=== PATIENT | male | born 1945 | race Caucasian/White ===

== ENCOUNTER 2017-02-13 07:09 | Emergency (ER) | payer OTHER, MEDICARE ==
[2017-02-13 07:27] VITALS: BP 121/90; PULSE 78; RESP 16; TEMP 98.4; O2SAT 94
--- NOTE | 2017-02-13 07:34 | EDPHY ---
H & P Time Seen by Provider: 02/13/17 07:33 HPI/ROS: 71-year-old male presents complaining of cough, sore throat, runny nose for several days. Patient states this often happens to him and it is easily knocked out with Z- Kash. Review of systems As per HPI General no fever no chills no weakness HEENT no eye pain no eye discharge. No eye redness, positive sore throat Respiratory positive cough, no shortness of breath Cardiac no chest pain, no peripheral edema GI no abdominal pain, no diarrhea, no constipation, no nausea, no vomiting no flank pain, no hematuria, no dysuria Musculoskeletal no myalgias, no joint pain Heme no easy bruising, no easy bleeding Endo no polyuria, no polydipsia Skin no rashes, no pruritus Neuro no syncope, no dizziness, no headaches Psych is no suicidal ideation, no homicidal ideation Past Medical/Surgical History: non contributory Social History: denies alcohol or drug use Smoking Status: Never smoked Physical Exam: 71 yo M in nad, non toxic appearance, afebrile vss at,nc eomi, anciteric nares yellow dc op mild erythema, no exudate, no petechiae neck supple, left shoddy anterior ln,small nt lungs cta bilat heart rrr abd nabs soft ext no cce Constitutional: Initial Vital Signs Temperature (C) 36.9 C 02/13/17 07:25 Heart Rate 78 02/13/17 07:25 Respiratory Rate 16 02/13/17 07:25 Blood Pressure 121/90 H 02/13/17 07:25 O2 Sat (%) 94 02/13/17 07:25 O2 Delivery Mode Room Air Allergies/Adverse Reactions: No Known Allergies Allergy (Verified 02/13/17 07:24) Home Medications: Medication Instructions Recorded Aspirin 81mg (OTC) 06/27/15 Fish Oil 06/27/15 AZITHROMYCIN [Z-PACK] 250 mg PO DAILY #6 tab 02/13/17 Prosteon 02/13/17 Vit D3/Folic Acid/B2/B6/B12 1 each PO 02/13/17 [Folgard Tablet] Medical Decision Making ED Course/Re-evaluation: pt seen and evaluated for cough, sore throat imp bronchitis pharyngitis plan ryan pcp Differential Diagnosis: uri, pneumonia, bronchitis, pharyngitis Departure - Departure Disposition: Home, Routine, Self-Care Clinical Impression: Bronchitis Condition: Good Instructions: Pharyngitis (ED), Acute Bronchitis (ED) Referrals: Vincent Kumar MD [Primary Care Provider] - As per Instructions Prescriptions: AZITHROMYCIN [Z-PACK] 250 mg PO DAILY #6 tab
== END 2017-02-13 07:45 | disposition home or self-care (01) ==
LOC: CED 07:09
DX: J20.9 Acute bronchitis, unspecified (principal); Z79.82 Long term (current) use of aspirin

== ENCOUNTER → 2018-03-03 | Outpatient (CLI) | payer OTHER, MEDICARE ==
[~2018-03-03] MED LIST: GADOBUTROL 10 ML VIAL IVP ONE
== END ==
LOC: FIMAGING 07:42
PROVIDERS: ATTEND Specialist
DX: C61 Malignant neoplasm of prostate (principal)
CPT/HCPCS: 72197; 76377; A9585